=== PATIENT | female | born 1940 | race Caucasian/White ===

== ENCOUNTER → 2020-01-09 | Outpatient (CLI) | payer OTHER ==
[~2020-01-09] MED LIST: ALBIPROI INH; AMLO5 PO; ASPI81CH PO; AZIT250 PO; FLUSAL2505 IH; PRED20 PO; PROCODE120 PO
== END ==
LOC: LAB EV 06:45
DX: R31.9 Hematuria, unspecified (principal)
CPT/HCPCS: 87077; 87086; 87186

== ENCOUNTER → 2020-01-23 | Outpatient (CLI) | payer OTHER ==
[2020-01-23 11:05] LABS: Appearance, Urine Hazy (Clear); Bilirubin, Urine Neg (Neg); Blood, Urine Neg (Neg); Color, Urine Yellow (P-Yellow); Glucose Qualitative, Urine Neg (Normal); Ketones, Urine Neg (Neg); Leukocyte Esterase, Urine 1+ (Neg); Nitrite, Urine Pos (Neg); Protein, Urine Neg (Neg); Specific Gravity, Urine 1.015 (1.003-1.022); Urobilinogen, Urine NORM (Normal)
[2020-01-23 11:06] LABS: Bacteria Many /hpf; Red Blood Cells, Urine 0-2 /hpf (0-2); Squamous Epithelial Cells Few /hpf (Few)
== END ==
LOC: LAB SHORT 07:00 → LAB EV 07:00
PROVIDERS: Student in an Organized Health Care Education/Training Program
DX: N39.0 Urinary tract infection, site not specified (principal)
CPT/HCPCS: 81001; 87077; 87086; 87186

== ENCOUNTER → 2020-04-28 | Outpatient (CLI) | payer OTHER ==
[2020-04-28 11:15] LABS: Appearance, Urine Hazy (Clear); Bilirubin, Urine Neg (Neg); Blood, Urine 1+ (Neg); Color, Urine Yellow (P-Yellow); Glucose Qualitative, Urine Neg (Normal); Ketones, Urine Neg (Neg); Leukocyte Esterase, Urine 2+ (Neg); Nitrite, Urine Pos (Neg); Protein, Urine Neg (Neg); Urobilinogen, Urine NORM (Normal); White Blood Cells, Urine 25-50 /hpf (0-5)
[2020-04-28 11:16] LABS: Bacteria Many /hpf; Squamous Epithelial Cells Mod /hpf (Few)
== END ==
LOC: LAB EV 07:09
PROVIDERS: Internal Medicine
DX: R35.0 Frequency of micturition (principal)
CPT/HCPCS: 81001; 87077; 87086; 87186

== ENCOUNTER 2022-10-08 12:02 | Observation (INO) | payer MEDICARE ==
[~2022-10-08] VITALS: Ht 147.3 cm; Wt 40.8 kg
[~2022-10-08 12:02] MED LIST changes: -FLUSAL2505 IH; +FLUT1DIS5 INH
[2022-10-08 13:06] LABS: BASOPHILS ABSOLUTE AUTO 0.05 K/mm3 (0.00-0.23); BASOPHILS PERCENT AUTO 0 % (0-2); EOSINOPHILS PERCENT AUTO 0 % (0-6); Hematocrit 37.8 % (33.0-51.0); Hemoglobin 11.5 g/dL (11.5-16.0); IMMATURE GRAN ABSOLUTE AUTO 0.15 K/mm3 (0.00-0.10); IMMATURE GRAN PERCENT AUTO 1 % (0-1); LYMPHOCYTES ABSOLUTE AUTO 0.72 K/mm3 (0.84-5.20); LYMPHOCYTES PERCENT AUTO 3 % (21-46); MONOCYTES ABSOLUTE AUTO 1.25 K/mm3 (0.16-1.47); MONOCYTES PERCENT AUTO 5 % (4-13); Mean Corpuscular HGB 29.3 pg (26.0-34.0); Mean Corpuscular HGB Conc 30.4 g/dL (31.5-36.5); Mean Corpuscular Volume 96 fL (80-100); Mean Platelet Volume 10.1 fL (9.1-12.4); NEUTROPHILS ABSOLUTE AUTO 25.83 K/mm3 (1.96-9.15); NEUTROPHILS PERCENT AUTO 92 % (41-73); Platelet Count 219 K/mm3 (150-400); RDW Standard Deviation 46.7 fL (35.1-46.3); Red Blood Cell Count 3.93 M/mm3 (3.80-5.20)
[2022-10-08 13:25] LABS: Albumin, Blood 2.8 g/dL (3.4-5.0); Albumin/Globulin Ratio 0.7 (0.8-1.8); Bilirubin, Total 0.5 mg/dL (0.1-1.0); Bun/Creatinine Ratio 22.9 (12.0-20.0); Creatinine, Blood 2.01 mg/dL (0.40-1.00); Globulin, Blood 3.9 g/dL (2.2-4.0); Potassium, Blood 4.9 mmol/L (3.5-5.5); Total Protein, Blood 6.7 g/dL (6.4-8.2)
[2022-10-08 13:40] LABS: Influenza A, PCR NEGATIVE (NEGATIVE); Influenza B, PCR NEGATIVE (NEGATIVE); Resp Syncytial Virus, PCR NEGATIVE (NEGATIVE); SARS-Cov-2 (COVID-19) PCR, MMC NEGATIVE (NEGATIVE)
--- NOTE | 2022-10-08 17:49 | NUR ---
Referral received from ER provider. Dr Ricks at bedside with pt/SO when I arrived. Pt to be admitted to acute care with comfort care orders. [place] per Dr Ricks entered after determined that pt and SO in favor of no agressive intervention/tx. Pt looks frail, emaciated, dyspnic and exhausted. She is slow to respond when awake. She indicated that she is not experiencing pain. She shows nonverbal indicators of discomfort and anxiety when awake. She was trying to pull off rebreather mask when awake. Plan to visit again early in am for s/s assessment and support.
--- NOTE | 2022-10-08 18:21 | NUR ---
SHIFT SUMMARY MS WRIGHT WAS ADMITTED TO MEDICAL UNIT FROM ER AT 1650HRS. SHE IS ON COMFORT CARE. ON ARRIVAL LUNG SOUNDS AUDIBLE WITH CRACKLES WHICH HAVE LESSENED CONSIDERABLY IN THE LAST 1.5HRS, ON 6L NC. SKIN PALE WITH SOME CYANOSIS EVIDENT. SHE DID NOT LOOK SOB. SHE TALKED TO ME, BUT THE WORDS WERE VERY MUMBLED AND I COULDN'T UNDERSTAND MOST OF THEM. SHE WAS ABLE TO OPEN HER EYES AND FOLLOW SIMPLE DIRECTIONS. SHE WAS ABLE TO ANSWER YES/NO QUESTIONS. SHE SAID YES TO FEELING COMFORTABLE, NO TO ANY PAIN WHEN ASKED ON MULTIPLE OCCASIONS. NO TO FEELING SOB. SHE SAID NO TO WANTING THE REJI. HER SKIN TO HER BACK AND BUTTOCKS IS INTACT. BRUISES EVIDENT TO BOTH FEET. NO FAMILY PRESENT HERE, ACCORDING TO REPORT FROM ER HER "BELOVED" WAS WITH HER IN THE ER AND HAS GONE HOME. ATTEMPTED TO PLACE RESENDEZ CATHETER UNSUCCESSFUL. SHE HAS NOT URINATED. WRAPPED IN WARM BLANKETS AND REPOSITIONED FOR COMFORT. BED LOW. CALL LIGHT IN REACH.
[2022-10-08] MEDS ORDERED: LOSARTAN POTASS25 M2 PO (22:09)
[2022-10-08] MEDS ORDERED: IPRAT-ALBUT 0.5-3 ML INH (22:09)
--- NOTE | 2022-10-09 06:32 | NUR ---
PATIENT CALM AND DENIED DISCOMFORT T/O SHIFT. TIME OF APPROX 5. SIGNIFICANT OTHER NOTIFIED; TO ARRIVE ON DAY SHIFT PER ATHLETIC FIELD CUSTODIAN.
--- NOTE | 2022-10-09 09:44 | NUR ---
RN NOTE THE PARTNER (BELOVED) OF MS WRIGHT CAME TO SEE HER THIS MORNING. HE VERBALISED UNDERSTANDING THAT PT'S BODY IS GETTING MOVED TO [facility], GIVEN THEIR INFORMATION. [facility] TRANSPORTED THE BODY AT ~ 0915HRS. BELONGINGS GIVEN TO S/O.
== END 2022-10-09 04:45 ==
LOC: ER 12:02 → MEDS 12:03
PROVIDERS: Emergency Medicine; ADMIT Family Medicine
DX: A41.9 Sepsis, unspecified organism (principal); J18.9 Pneumonia, unspecified organism; J44.0 Chronic obstructive pulmonary disease with (acute) lower respiratory infection; J43.9 Emphysema, unspecified; Z66 Do not resuscitate; Z88.8 Allergy status to other drugs, medicaments and biological substances; Z51.5 Encounter for palliative care
CPT/HCPCS: 0241U; 36415; 71045; 80053; 84484; 85025; 93005; 93010; 94644; 94664; A9270; G0378; J0456; J0696; J7030; J7050